=== PATIENT | female | born 1950 | race African-American/Black ===

== ENCOUNTER 2019-01-22 20:40 | Emergency (ER) | payer OTHER ==
[~2019-01-22] VITALS: Ht 154.9 cm; Wt 78.0 kg
[2019-01-22] MEDS ORDERED: DexAMETHasone SOD PHOS 10MG/1ML VIAL INJ IM ONE (22:30)
[2019-01-22 23:08] VITALS: BP 115/91
== END 2019-01-22 23:15 | disposition home or self-care (01) ==
LOC: ER 20:40
DX: M62.838 Other muscle spasm (principal); M54.2 Cervicalgia
CPT/HCPCS: 82962; 96372; 99283; J1100